=== PATIENT | female | born 1930 | race Caucasian/White ===

== ENCOUNTER 2020-01-01 17:25 | Emergency (ER) | payer MEDICARE, BC ==
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
[2020-01-01] MEDS ORDERED: fentaNYL 100 MCG/2 ML SDV IVPUSH ONE (18:21)
[2020-01-01] MEDS ORDERED: Metoclopramide 10 MG/2 ML SDV IV ONE (18:21)
[2020-01-01] MEDS ORDERED: Sodium Chloride 0.9% 10 ML Syringe FLUSH PRN (18:22)
[2020-01-01] MEDS ORDERED: Acetaminophen/HYDROcodone 325-5 MG Tab PO ONE (19:23)
--- NOTE | 2020-01-01 19:56 | CRLCT ---
INDICATIONS: Fall. Struck head. On Coumadin. TECHNIQUE: CT head without contrast. COMPARISON: None FINDINGS: Mild generalized volume loss and ill-defined low-attenuation in the periventricular and subcortical white matter. There is no mass effect, midline shift or hydrocephalus. No CT evidence of acute hemorrhage or infarction. No abnormal extra-axial fluid collection. Intracranial atherosclerosis. Bone windows show no acute osseous abnormality. Paranasal sinuses and orbits as imaged are unremarkable. IMPRESSION: 1. No acute intracranial abnormality. 2. Mild generalized volume loss and changes of chronic small vessel ischemic disease. Dictated by Alfredo Wolff MD @ 01/01/2020 7:55:23 PM Dictated by: Alfredo Wolff MD @ 01/01/2020 19:55:32 (Electronically Signed)
--- NOTE | 2020-01-01 20:00 | CRLCT ---
INDICATIONS: Fall. Struck head. Neck pain. TECHNIQUE: CT cervical spine without contrast. COMPARISON: None. FINDINGS: There is bone demineralization with mild to moderate multilevel degenerative changes most pronounced at C5-6. Minimal anterolisthesis of C4 on C5 and C7 on T1 is likely related to degenerative disease. No acute fracture or significant bony central canal compromise. No additional osseous abnormality. Paraspinal soft tissues and lung apices as imaged are unremarkable. IMPRESSION: No acute cervical spine fracture. Dictated by Alfredo Wolff MD @ 01/01/2020 7:59:36 PM Dictated by: Alfredo Wolff MD @ 01/01/2020 19:59:40 (Electronically Signed)
--- NOTE | 2020-01-02 10:02 | CR ---
Hip Min 2V or 3V w Pelvis Rt, CLINICAL HISTORY: Fall with hip pain FINDINGS: Patient has bilateral total knee arthroplasties. Components appear well seated. No acute fractures identified. There is some soft tissue fullness over the right the pelvic region. This could be a urinary full bladder. Hematoma is not excluded. IMPRESSION: No fracture seen Vague soft tissue fullness over the right pelvic region may be a distended urinary bladder. Hematoma is not excluded considering the history of trauma CHEST: AP CLINICAL HISTORY:Fall COMPARISON:None FINDINGS: There is a linear density along the right lateral and upper hemithorax. This likely represents a superimposed skinfold. Pneumothorax is felt less likely. Heart size and pulmonary vascularity are normal. There are atherosclerotic changes in the aorta. IMPRESSION: Curvilinear density over the right hemithorax is likely a posterior skinfold. Clinical correlation is necessary. If clinically relevant, repeat the chest with expiration recommended.
== END 2020-01-01 20:52 | disposition home or self-care (01) ==
LOC: JP.ED 17:25
DX: S70.01XA Contusion of right hip, initial encounter (principal); S70.11XA Contusion of right thigh, initial encounter; S70.12XA Contusion of left thigh, initial encounter; S46.911A Strain of unspecified muscle, fascia and tendon at shoulder and upper arm level, right arm, initial encounter; S09.90XA Unspecified injury of head, initial encounter; S19.9XXA Unspecified injury of neck, initial encounter; M81.0 Age-related osteoporosis without current pathological fracture; I10 Essential (primary) hypertension; K21.9 Gastro-esophageal reflux disease without esophagitis; I48.91 Unspecified atrial fibrillation; Z88.2 Allergy status to sulfonamides; Z79.02 Long term (current) use of antithrombotics/antiplatelets; Z79.899 Other long term (current) drug therapy; W19.XXXA Unspecified fall, initial encounter
CPT/HCPCS: 36415; 70450; 71045; 72125; 73502; 80053; 85025; 85610; 96374; 96375; 99284; A9270; J2765; J3010; 99283